=== PATIENT | female | born 1995 | race American Indian/Alaskan Native ===

== ENCOUNTER 2019-01-20 15:17 | Inpatient (IN) | payer BC, OTHER ==
[~2019-01-20] VITALS: Ht 165.1 cm; Wt 109.0 kg
--- NOTE | ~2019-01-20 | OR ---
[facility] [address] [place], [place] [address] Draft DATE OF OPERATION: 01/21/2019 SURGEON: Ariadna Mcgrath MD HAMMER RUNNER: Vishnu Magallon MD PREOPERATIVE DIAGNOSES: Term , preeclampsia with severe features, arrest of dilation. POSTOPERATIVE DIAGNOSIS: Term , preeclampsia with severe features, arrest of dilation, delivered. PROCEDURE PERFORMED: Primary section with low segment transverse uterine incision. ANESTHESIA: Spinal. ESTIMATED BLOOD LOSS: 600 mL. DRAINS: catheter. INDICATIONS AND FINDINGS: The patient is a 23-year-old female, 1, para 0, admitted at 38-2/7th weeks for induction secondary to preeclampsia with severe features. The patient was 4 cm dilated and 90% effaced on her admission. The patient was also GBS positive. Her labs were normal other than an elevated uric acid and 2+ protein. The patient underwent artificial rupture of membranes with clear fluid seen. After 2 hours, she failed to develop a regular contraction pattern and Pitocin augmentation was begun. She underwent Pitocin augmentation all night, and in the morning, she was only 5 cm. The Pitocin was increased further and she progressed to approximately 7 cm, but failed to make any further progress. At that point, it was felt that delivery by section was indicated. She was noted to be persistent posterior as well. This did not improve with multiple changes in position. The patient had to receive an IV labetalol for severe hypertension twice during her labor. She was also started on magnesium on the morning of her delivery. At the time of surgery, she was delivered of a little girl from the ROT position via lower segment transverse uterine incision with Apgars of 8 and 9 and a PATIENT NAME: OSITO GUTIERREZ OPERATIVE REPORT DATE OF : [birth year] REPORT #: [id number] PHYSICIAN: ARIADNA MCGRATH MD PCP: ARIADNA MCGRATH MD REPORT IS CONFIDENTIAL AND NOT TO BE RELEASED WITHOUT AUTHORIZATION [facility] [address] [place], [place] [address] Draft weight of 7 pounds 7 ounces. The ovaries had multiple small cysts, but the uterus, tubes, and placenta otherwise appeared normal. There was a nuchal cord x1 which was tight. DESCRIPTION OF PROCEDURE: The patient was prepped and draped in the supine position. A Pfannenstiel skin incision was made and carried down through the fascia. The incision was extended laterally. The inferior and superior fascial flaps were then created. The muscles were bluntly divided, and the peritoneum opened sharply, and the incision extended superiorly and inferiorly. The Tayo retractor was then placed. An incision made at the upper aspect of the peritoneal reflection. The baby was delivered with the above findings and handed off to the pediatric staff in attendance. The placenta was removed manually and the uterus explored with a lap tape assuring no remaining fragments. The edges of the incision were identified and grasped with T clamps. The uterus was closed in 2 layers using #0 Monocryl. The first layer was a running locking stitch. The 2nd was a vertical imbricating stitch. The abdomen was then copiously irrigated and inspected, and good hemostasis was noted. The retractor was removed and the peritoneum identified. An ACell graft was then laid over the incision to aid in healing. The peritoneum was then closed with a running suture of 3-0 Vicryl. The muscles were brought together with interrupted sutures of 0 Vicryl. Bleeding points were controlled with cautery. This layer was then irrigated and ACell powder was sprinkled over the muscles to aid in healing. The fascia was then closed from each angle to the midline with a running suture of 0 Vicryl. The subcutaneous tissue was irrigated and bleeding points were controlled with cautery. The deep space was closed with interrupted sutures of 3-0 Vicryl. The skin was closed with rukhsana. All sponge and needle counts were correct. She tolerated the procedure well and was taken to the recovery room in good condition. Ariadna Mcgrath MD PJW/MODL /[id number] cc: Vishnu Magallon MD [place] PATIENT NAME: OSITO GUTIERREZ OPERATIVE REPORT DATE OF : [birth year] REPORT #: [id number] PHYSICIAN: ARIADNA MCGRATH MD PCP: ARIADNA MCGRATH MD REPORT IS CONFIDENTIAL AND NOT TO BE RELEASED WITHOUT AUTHORIZATION [address] [address] Draft Copies: VISHNU MAGALLON MD ~ PATIENT NAME: NATALEE GUTIERREZSHANIKA YAÑEZ OPERATIVE REPORT DATE OF : [birth year] REPORT #: [id number] PHYSICIAN: ARIADNA MCGRATH MD PCP: ARIADNA MCGRATH MD REPORT IS CONFIDENTIAL AND NOT TO BE RELEASED WITHOUT AUTHORIZATION
[2019-01-20] MEDS ORDERED: FOLIC ACID0.4 MG PO (16:09)
[2019-01-20] MEDS ORDERED: VITAMIN D400 UNIT PO (16:09)
--- NOTE | 2019-01-20 19:54 | PR ---
[facility] [address] [facility] [place], [place] [address] Signed Progress Notes IP Datetime Report Generated by CPN: 01/20/2019 19:54 PROGRESS NOTES: [id number] Impression: Reassuring heart rate Procedures: Sterile Vag Exam Plan: Augmentation Informed Consent Obtain: Vaginal Delivery; Induction of Labor; Risks, Benefits and Alternatives Discussed VITAL SIGNS: [id number] Vital Signs: Reviewed VS Notable Details: HTN EXAM: [id number] Dilatation: 4.0 Effacement: 90 Station: -2 Uterine Contractions: irregular MEMBRANES: [id number] Membrane Status: Intact Comments: No regular contraction pattern since AROM and no change in cervix. Feel pit augment is needed to increase contractions. Discussed with pt. Fetus A: [id number] FHR Baseline: 145 Variability: Moderate 6-25bpm Accelerations: 15X15 Decelerations: None FHR Category: Category I Presentation: Vertex Comments on Fetus A: No evidence of metabolic acidosis Fetus B: [id number] Signing Physician: Ariadna Mcgrath MD Copies: ~ *Electronically Signed* 01/20/191953 ARIADNA MCGRATH MD PATIENT NAME: OSITO GUTIERREZ PROGRESS NOTE DATE OF : [birth year] PHYSICIAN: ARIADNA MCGRATH MD RPT #: [id number] REPORT IS CONFIDENTIAL AND NOT TO BE RELEASED WITHOUT AUTHORIZATION
--- NOTE | 2019-01-21 00:02 | PR ---
[facility] [address] [facility] [place], [place] [address] Signed Progress Notes IP Datetime Report Generated by FLOYD: 01/21/2019 00:02 PROGRESS NOTES: [id number] Impression: Slow Progression of Labor Procedures: Intrauterine Pressure Catheter; Sterile Vag Exam Plan: Continue present management Informed Consent Obtain: Vaginal Delivery; Induction of Labor; Risks, Benefits and Alternatives Discussed VITAL SIGNS: [id number] Vital Signs: Reviewed VS Notable Details: HTN--not severe EXAM: [id number] Dilatation: 4.0 Effacement: 100 Station: -2 Uterine Contractions: q 2 min MEMBRANES: [id number] Membrane Status: Intact Comments: Kali well on pit but no progress. Will place IUPC and continue to increase pit as needed. Fetus A: [id number] FHR Baseline: 130 Variability: Moderate 6-25bpm Accelerations: 15X15 Decelerations: None FHR Category: Category I Presentation: Vertex Comments on Fetus A: No evidence of metabolic acidosis Fetus B: [id number] Signing Physician: Ariadna Mcgrath MD Copies: ~ *Electronically Signed* 01/21/19 0002 ARIADNA MCGRATH MD PATIENT NAME: OSITO GUTIERREZ PROGRESS NOTE DATE OF : [birth year] PHYSICIAN: ARIADNA MCGRATH MD RPT #: [id number] REPORT IS CONFIDENTIAL AND NOT TO BE RELEASED WITHOUT AUTHORIZATION
--- NOTE | 2019-01-21 06:52 | PR ---
[facility] [address] [place], [place] [address] Signed Progress Notes IP Datetime Report Generated by FLOYD: 01/21/2019 06:52 PROGRESS NOTES: [id number] Impression: Slow Progression of Labor Procedures: Intrauterine Pressure Catheter; Sterile Vag Exam Plan: Continue present management Other Plans: start mag sulfate Informed Consent Obtain: Vaginal Delivery; Induction of Labor; Risks, Benefits and Alternatives Discussed VITAL SIGNS: [id number] Vital Signs: Reviewed VS Notable Details: severe hypertension improved after IV labetalol 20 mg _ 40 mg EXAM: [id number] Dilatation: 7.5 Effacement: 100 Station: 0 Uterine Contractions: q 1 to 3 min MEMBRANES: [id number] Membrane Status: Intact Comments: Slowly progressing. BPs were in the severe range but improved after medication. Will start mag sulfate now for seizure prophylaxis. Fetus A: [id number] FHR Baseline: 130 Variability: Minimal - Undetectable to <5bpm Accelerations: None Decelerations: Early; Late FHR Category: Category II Presentation: Vertex Comments on Fetus A: previously with mod variability but now decreased. Occ late decel. Will require close observation Fetus B: [id number] Signing Physician: Ariadna Mcgrath MD Copies: ~ *Electronically Signed* 01/21/19 0652 ARIADNA MCGRATH MD PATIENT NAME: OSITO GUTIERREZ PROGRESS NOTE DATE OF : [birth year] PHYSICIAN: ARIADNA MCGRATH MD RPT #: [id number] REPORT IS CONFIDENTIAL AND NOT TO BE RELEASED WITHOUT AUTHORIZATION
--- NOTE | 2019-01-21 07:41 | PR ---
[facility] [address] [place], [place] [address] Signed Progress Notes IP Datetime Report Generated by FLOYD: 01/21/2019 07:41 PROGRESS NOTES: [id number] Impression: Slow Progression of Labor Procedures: Sterile Vag Exam Plan: Continue present management Other Plans: start mag sulfate Informed Consent Obtain: Vaginal Delivery; Induction of Labor; Risks, Benefits and Alternatives Discussed VITAL SIGNS: [id number] Vital Signs: Reviewed VS Notable Details: mild HTN EXAM: [id number] Dilatation: 5.0 Effacement: 100 Station: -1 Uterine Contractions: q 1 to 3 min MEMBRANES: [id number] Membrane Status: Intact Comments: Poor progress despite pit augment. Baby currently OP so will attempt changes in position to help rotation but not good prognosis given her adequate contraction pattern. BPs improved after labetalol xs 2 but mag sulfate going for seizure prevention now. Fetus A: [id number] FHR Baseline: 130 Variability: Minimal - Undetectable to <5bpm Accelerations: 10X10 Decelerations: Early FHR Category: Category II Presentation: Vertex Comments on Fetus A: overall reassuring but will continue close observation Fetus B: [id number] Signing Physician: Ariadna Mcgrath MD Copies: ~ *Electronically Signed* 01/21/19 0741 ARIADNA MCGRATH MD PATIENT NAME: OSITO GUTIERREZ PROGRESS NOTE DATE OF : [birth year] PHYSICIAN: ARIADNA MCGRATH MD RPT #: [id number] REPORT IS CONFIDENTIAL AND NOT TO BE RELEASED WITHOUT AUTHORIZATION
--- NOTE | 2019-01-21 12:32 | PR ---
[facility] [address] [place], [place] [address] Signed Progress Notes IP Datetime Report Generated by FLOYD: 01/21/2019 12:32 PROGRESS NOTES: [id number] Impression: Slow Progression of Labor Procedures: Sterile Vag Exam Plan: Continue present management Other Plans: increase pit Informed Consent Obtain: Vaginal Delivery; Induction of Labor; Risks, Benefits and Alternatives Discussed VITAL SIGNS: [id number] Vital Signs: Reviewed VS Notable Details: intermittent severe HTN EXAM: [id number] Dilatation: 7.0 Effacement: 100 Station: -1 Uterine Contractions: q 2 to 5 min, poor quality MEMBRANES: [id number] Membrane Status: Intact Comments: Very slow progress. Contractions do not appear adequate currently. Will increase pit to get more effective pattern. It is unclear if she will be able to deliver vaginally at this time. Her BPs have been more manageable and she is on mag at this time. Fetus A: [id number] FHR Baseline: 130 Variability: Moderate 6-25bpm Accelerations: 15X15 Decelerations: Variable FHR Category: Category II Presentation: Vertex Comments on Fetus A: good variability and accels so feel baby tolerating labor Fetus B: [id number] Signing Physician: Ariadna Mcgrath MD Copies: ~ *Electronically Signed* 01/21/19 1232 ARIADNA MCGRATH MD PATIENT NAME: OSITO GUTIERREZ PROGRESS NOTE DATE OF : [birth year] PHYSICIAN: ARIADNA MCGRATH MD RPT #: [id number] REPORT IS CONFIDENTIAL AND NOT TO BE RELEASED WITHOUT AUTHORIZATION
--- NOTE | 2019-01-21 14:33 | PR ---
[facility] [address] [place], [place] [address] Signed Progress Notes IP Datetime Report Generated by FLOYD: 01/21/2019 14:33 PROGRESS NOTES: [id number] Impression: Arrest of dilatation/descent; Reassuring heart rate Procedures: Sterile Vag Exam Plan: Deliver- Section Other Plans: increase pit Informed Consent Obtain: Section Delivery VITAL SIGNS: [id number] Vital Signs: Reviewed VS Notable Details: HTN EXAM: [id number] Dilatation: 7.5 Effacement: 100 Station: -2 Uterine Contractions: q 1 to 5 min MEMBRANES: [id number] Membrane Status: Intact Comments: No real progress despite multiple changes in position and pitocin. I do not feel a vaginal delivery will occur and that a C/S is needed for delivery. PARQ done for C/S. Fetus A: [id number] FHR Baseline: 130 Variability: Moderate 6-25bpm Accelerations: 15X15 Decelerations: Late; Variable FHR Category: Category II Presentation: Vertex Comments on Fetus A: Accels present but intermittent variables/lates Fetus B: [id number] Signing Physician: Ariadna Mcgrath MD Copies: ~ *Electronically Signed* 01/21/19 1437 ARIADNA MCGRATH MD PATIENT NAME: OSITO GUTIERREZ PROGRESS NOTE DATE OF : [birth year] PHYSICIAN: ARIADNA MCGRATH MD RPT #: [id number] REPORT IS CONFIDENTIAL AND NOT TO BE RELEASED WITHOUT AUTHORIZATION
--- NOTE | 2019-01-21 15:56 | NUR ---
01/21/19 1555 Eugenia Thorne 1545 PATIENT ARRIVES TO ROOM 106 VIA BED AWAKE, DENIES PAIN OR NAUSEA. RESP EVEN AND UNLABORED, ROOM AIR SATS 94%. SIGNIFICANT OTHER AT BEDSIDE WITH BABY. 1550 MOTHER SKIN TO SKIN WITH BABY. CONTINUES TO DENY PAIN OR NAUSEA. HOB ELEVATED. TOLERATES WELL.
--- NOTE | 2019-01-22 08:25 | PR ---
[facility] [address] [facility] [place] [address] Signed PP Progress Notes Datetime Report Generated by FLOYD: 01/22/2019 08:25 SUBJECTIVE: [id number] Pain: Within normal limits Nausea/Vomiting: Denies Flatus: No Vital Signs: [id number] Vital Signs: Reviewed; Within Normal Limits Notable Details: BPs normalized overnight EXAM: [id number] Cardiovascular: Normal Respiratory: Normal Abdomen/Uterus: Abnormal Lochia: Normal Vulva/Perineum: Not Done Breasts: Not Done CVA Tenderness: Not Done Extremities: Normal Incision: Normal Progress: Abnormal Exam Comments: Abdomen with active BS. Fundus firm, NT @ U-1. H/H 11/33.2, WBC 17.1, plat 339k Mag level @ 2100 4.4 IMPRESSION/PLAN/PROCEDURES: [id number] Impression: Normal progression Other Plans: Stop mag, ambulate, shower Progress Notes: Doing well overall. Her BPs have normalized. Signing Physician: Ariadna Mcgrath MD Copies: ~ *Electronically Signed* 01/22/19 0825 ARIADNA MCGRATH MD PATIENT NAME: OSITO GUTIERREZ PROGRESS NOTE DATE OF : 96 PHYSICIAN: ARIADNA MCGRATH MD RPT #: [id number] REPORT IS CONFIDENTIAL AND NOT TO BE RELEASED WITHOUT AUTHORIZATION
--- NOTE | 2019-01-23 08:11 | PR ---
[facility] [address] [facility] [place], [place] [address] Signed PP Progress Notes Datetime Report Generated by FLOYD: 01/23/2019 08:11 SUBJECTIVE: [id number] Pain: Within normal limits Nausea/Vomiting: Denies Flatus: Yes Vital Signs: [id number] Vital Signs: Reviewed Notable Details: occ increased BP EXAM: [id number] Cardiovascular: Normal Respiratory: Normal Abdomen/Uterus: Abnormal Lochia: Normal Vulva/Perineum: Not Done Breasts: Not Done CVA Tenderness: Not Done Extremities: Normal Incision: Normal Progress: Normal Exam Comments: Abdomen with active BS. Fundus firm, NT @ U-1. IMPRESSION/PLAN/PROCEDURES: [id number] Impression: Normal progression; Induced Hypertension Plan: Remove rukhsana; Discharge Other Plans: Stop mag, ambulate, shower Procedures: None Progress Notes: Doing well at this time and she is ready for discharge. Signing Physician: Ariadna Mcgrath MD Copies: ~ *Electronically Signed* 01/23/19 08 ARIADNA MCGRATH MD PATIENT NAME: OSITO GUTIERREZ PROGRESS NOTE DATE OF : 96 PHYSICIAN: ARIADNA MCGRATH MD RPT #: [id number] REPORT IS CONFIDENTIAL AND NOT TO BE RELEASED WITHOUT AUTHORIZATION
== END 2019-01-23 11:05 | disposition home or self-care (01) | DRG 788 ==
LOC: FBC 15:17
PROVIDERS: ADMIT Obstetrics & Gynecology
PROC: 10907ZC Drainage of Amniotic Fluid, Therapeutic from Products of Conception, Via Natural or Artificial Opening (ICD-10-PCS; 2019-01-20)
PROC: 10H07YZ Insertion of Other Device into Products of Conception, Via Natural or Artificial Opening (ICD-10-PCS; 2019-01-21)
PROC: 10D00Z1 Extraction of Products of Conception, Low, Open Approach (ICD-10-PCS; principal; 2019-01-21 14:37)
DX: O11.4 Pre-existing hypertension with pre-eclampsia, complicating childbirth (principal); O10.92 Unspecified pre-existing hypertension complicating childbirth; Z3A.38 38 weeks gestation of pregnancy; Z37.0 Single live birth; O62.1 Secondary uterine inertia; O99.824 Streptococcus B carrier state complicating childbirth; O69.1XX0 Labor and delivery complicated by cord around neck, with compression, not applicable or unspecified; O76 Abnormality in fetal heart rate and rhythm complicating labor and delivery; O99.324 Drug use complicating childbirth; F12.90 Cannabis use, unspecified, uncomplicated; O99.284 Endocrine, nutritional and metabolic diseases complicating childbirth; E55.9 Vitamin D deficiency, unspecified; O63.9 Long labor, unspecified; O99.214 Obesity complicating childbirth; E66.9 Obesity, unspecified; O26.03 Excessive weight gain in pregnancy, third trimester; Z87.891 Personal history of nicotine dependence
CPT/HCPCS: 01961; 36415; 82565; 83735; 84450; 84520; 84550; 85025; 85027; J0690; J1644; J2274; J2405; J2540; J2550; J2590; J3010; J3475; J7060; J7120

== ENCOUNTER 2019-08-31 16:36 | Emergency (ER) | payer OTHER ==
[~2019-08-31] VITALS: Ht 165.1 cm; Wt 90.7 kg
[~2019-08-31 16:36] MED LIST: FOLIC ACID0.4 MG PO; VITAMIN D400 UNIT PO
[2019-08-31] MEDS ORDERED: ACETAMINOPHEN-CO5 ML PO (17:37)
== END 2019-08-31 17:52 | disposition home or self-care (01) ==
LOC: ED 16:36
DX: J11.1 Influenza due to unidentified influenza virus with other respiratory manifestations (principal)
CPT/HCPCS: 99283